=== PATIENT | female | born 1980 | race Caucasian/White ===

== ENCOUNTER 2016-07-05 13:16 | Day surgery (SDC) | payer OTHER ==
[~2016-07-05] VITALS: Ht 165.1 cm; Wt 103.0 kg
[~2016-07-05 13:16] MED LIST: AMOXICILLIN500 M2 PO; ASPIRIN 81MG TA81 MG PO; BENZONATATE100 MG PO; BISOPROLOL 5MG T5 MG PO; LASIX20 MG PO; NOMEDS XX; NORTRIPTYLINE H10 M1 PO; PHENTERMINE H37.5 M3 PO; POTASSIUM CHLO10 ME3 PO; PROBIOTIC250 MG PO; SLOW MAG PO; TYLENOL W/CODEI1 TA2 PO; VITAMIN D1000 IU PO; ZITHROMAX 250M250 MG PO
[2016-07-05 13:40] VITALS: BP 153/84
[2016-07-05 14:03] VITALS: BP 153/84
[2016-07-05 14:04] VITALS: BP 153/84
--- NOTE | 2016-07-05 14:09 | Procedure Note ---
Procedure detail Date of procedure: 07/05/16 Anesthesiologist: Javi long CRNA Complications: None Pre-procedure diagnosis: RIGHT occipital neuritis Post-procedure diagnosis: Same. Indications for procedure: This patient's a pleasant 35-year-old white female that we've treated in our pain clinic for RIGHT occipital neuritis. Patient is status post one RIGHT occipital nerve block. She reports 100 percent improvement terms of her cervical neck pain and headaches lasting 2 weeks. After which time her pain slowly returned to baseline. She describes her cervical neck pain as constant, dull, aching. She describes chronic headaches on the RIGHT side at the occiput and radiating around the parietal area on the RIGHT side. She rates his pain 8/10 when it's really bad. Procedure detail: Details of the procedure expected to the patient. Patient was taken to procedure room where noninvasive monitors were placed including noninvasive blood pressure cuff as well as pulse oximeter. The area over the RIGHT occipital nerve was cleansed using chlorhexidine as cleansing solution. The RIGHT greater and lesser occipital nerve was infiltrated with 1 percent lidocaine 4 mL +0.25 percent Marcaine 4 mL and 40 mg of Depo-Medrol. Patient all of the procedure without difficulty. There were complications. Plan and disposition: Patient was reevaluated 10 minutes post procedure. Patient reports 100 percent improved terms of her RIGHT occipital and parietal pain. She'll return to see us in the pain clinic for further evaluation. at [id number]
[2016-07-05 14:20] VITALS: BP 141/79
== END 2016-07-05 14:20 ==
LOC: PM 13:16
PROC: 3E0T3BZ Introduction of Anesthetic Agent into Peripheral Nerves and Plexi, Percutaneous Approach (ICD-10-PCS; principal; 2016-07-05)
PROC: 3E0T33Z Introduction of Anti-inflammatory into Peripheral Nerves and Plexi, Percutaneous Approach (ICD-10-PCS; 2016-07-05)
DX: M54.81 Occipital neuralgia (principal)
CPT/HCPCS: J1040

== ENCOUNTER → 2016-09-28 | Outpatient (CLI) | payer OTHER ==
[2016-09-28 07:38] LABS: LYMPH # 3.8 K/mm3 (0.7-4.5); LYMPH % 32.4 % (10-50.0)
[2016-09-28 08:39] LABS: BUN 22 mg/dL (7-18)
[2016-09-28 08:45] LABS: GFR (ESTIMATED) 94 ML/MIN (59-)
[2016-09-29 08:43] LABS: Vitamin B12 634 pg/mL (211-946)
[2016-10-03 03:35] LABS: 1,25-Dihydroxy, Vitamin D-2 <10 pg/mL (.); 1,25-Dihydroxy, Vitamin D-3 39 pg/mL (.); Total 1,25-Dihydroxy,Vitamin D 42 pg/mL (.)
== END ==
LOC: LAB 07:11
PROVIDERS: Nurse Practitioner Family
DX: I10 Essential (primary) hypertension (principal); R00.2 Palpitations; R53.83 Other fatigue

== ENCOUNTER → 2016-10-14 | Outpatient (CLI) | payer OTHER | LOC: SL 15:21 | DX: G47.33 Obstructive sleep apnea (adult) (pediatric) (principal) ==